=== PATIENT | male | born 1935 | race American Indian/Alaskan Native ===

== ENCOUNTER 2016-09-06 10:37 | Emergency (ER) | payer MEDICARE ==
[2016-09-06 10:38] VITALS: BMI 30.7
[2016-09-06] MEDS ORDERED: Sodium Chloride 0.9% 1,000 ML IV ONE (11:13)
[2016-09-06] MEDS ORDERED: Sodium Chloride 0.9% 1,000 ML ONE (11:43)
[2016-09-06 11:51] LABS: BASO % 0.8 % (0.0-2.0); EOS # 0.1 K/uL (0.0-0.7); EOS % 3.8 % (0.0-4.0); HEMATOCRIT 34.9 % (35.0-51.0); LYMPH # 0.7 K/uL (1.0-4.3); LYMPH % 18.2 % (20.0-40.0); MEAN CELL VOLUME 88.8 fL (80.0-94.0); MEAN CORPUSCULAR HEMOGLOBIN 28.8 pg (27.0-31.0); MEAN CORPUSCULAR HGB CONC 32.4 g/dL (33.0-37.0); MEAN PLATELET VOLUME 8.4 fL (7.2-11.7); MONO # 0.3 K/uL (0.0-0.8); MONO % 8.8 % (0.0-10.0); RED CELL DISTRIBUTION WIDTH 15.3 % (11.5-14.5); WHITE BLOOD COUNT 3.8 K/uL (4.8-10.8)
[2016-09-06 11:57] LABS: CHLORIDE 101 mmol/L (98-107); POTASSIUM 4.5 mmol/L (3.6-5.2); SODIUM 140 mmol/L (132-148)
[2016-09-06 11:59] LABS: AST/SGOT 17 U/L (17-59); BILIRUBIN,TOTAL 0.3 mg/dL (0.2-1.3); CARBON DIOXIDE 29 mmol/L (22-30); GFR AFRICAN-AMERICAN > 60
[2016-09-06 12:00] LABS: ALB/GLOB RATIO 1.4 (1.0-2.1); ALKALINE PHOSPHATASE 46 U/L (38-126); ALT/SGPT 22 U/L (21-72); BLOOD UREA NITROGEN 16 mg/dL (9-20); CALCIUM 8.6 mg/dl (8.6-10.4); GLUCOSE,RANDOM 89 mg/dL (75-110); TOTAL PROTEIN 6.7 g/dL (6.3-8.3)
[2016-09-06 12:13] LABS: URINE BACTERIA RARE (<OCC); URINE BILIRUBIN NEGATIVE (NEGATIVE); URINE BLOOD NEGATIVE (NEGATIVE); URINE COLOR Straw (YELLOW); URINE GLUCOSE (UA) NORMAL (Normal); URINE KETONE NEGATIVE (NEGATIVE); URINE LEUKOCYTE ESTERASE NEG Leu/uL (Negative); URINE PROTEIN NEGATIVE (NEGATIVE); URINE UROBILINOGEN NORMAL mg/dL (0.2-1.0); WBC URINE < 1 /hpf (0-5)
--- NOTE | 2016-09-06 13:07 | C.PDOC ---
History Of Present Illness 81 y/o male presents to the ED with complains of right sided rib pain radiating to back for the past couple weeks. Pain is sharp and increases with movement. Pt is taking pain medications with some relief. Pt denies nausea, vomiting, chest pain or any other complaints. Pt saw PMD for same who ordered XRs which were completed and were negative for any pathology. Pt has not followed up with PMD since. Chief Complaint (Nursing): Abdominal Pain History Per: Patient History/Exam Limitations: no limitations Onset/Duration Of Symptoms: Days Current Symptoms Are (Timing): Still Present Severity: Moderate Location Of Pain/Discomfort: Other (right rib pain) Radiation Of Pain To:: Back Associated Symptoms: denies: Fever, Chills, Nausea, Vomiting, Chest Pain Exacerbating Factors: Movement Recent travel outside of the [place]: No Past Medical History Reviewed: Historical Data, Nursing Documentation, Vital Signs Vital Signs: Last Vital Signs Temp 97.4 F L 09/06/16 13:58 Pulse 54 L 09/06/16 13:58 Resp 16 09/06/16 13:58 BP 132/69 09/06/16 13:58 Pulse Ox 97 09/06/16 13:58 - Medical History PMH: Anemia, Arthritis, Asthma, Atrial Fibrillation, Cardia Arrhythmia (04-23-16 ), CHF, Colonic Polyps, COPD, Depression, Diabetes, Diverticulitis, Fractures ( LEFT UPPER ARM), HTN, Hypercholesterolemia, Kidney Stones, Osteoporosis, Peripheral Edema, Pneumonia, Sleep Apnea Surgical History: Endoscopy, Pacemaker - [facility] Procedures DPT ADMINISTRATION (02/10/15) ENDOSC POLYPECTOMY OF LG INTEST (08/16/14) ESOPHAGOGASTRODUODENOSCOPY [EGD] W/CLOSED BIOPSY (08/16/14) MEASURE OF CARDIAC SAMPL & PRESSURE, L HEART, PERC APPROACH (04/23/16) PACKED CELL TRANSFUSION (02/17/15) PLAIN RADIOGRAPHY OF LEFT HEART USING LOW OSMOLAR CONTRAST (04/23/16) PLAIN RADIOGRAPHY OF MULT COR ART USING L OSM CONTRAST (04/23/16) PLAIN RADIOGRAPHY OF THORACIC AORTA USING L OSM CONTRAST (04/23/16) Family History: States: Unknown Family Hx - Social History Hx Alcohol Use: No Hx Substance Use: No Review Of Systems Except As Marked, All Systems Reviewed And Found Negative. Constitutional: Negative for: Fever, Chills Cardiovascular: Negative for: Chest Pain Respiratory: Negative for: Shortness of Breath Gastrointestinal: Negative for: Nausea, Vomiting Musculoskeletal: Positive for: Other (right sided rib pain radiating to back) Physical Exam - Physical Exam Appears: Non-toxic, No Acute Distress Skin: Warm, Dry, No Rash Head: Atraumatic, Normacephalic Neck: Normal ROM, Supple Chest: Symmetrical, Tenderness (point tenderness right lower rib cage) Cardiovascular: Rhythm Regular, Murmur (systolic) Respiratory: Normal Breath Sounds, No Rales, No Rhonchi, No Wheezing Gastrointestinal/Abdominal: Soft, No Tenderness Extremity: No Pedal Edema Extremity: Bilateral: Atraumatic Neurological/Psych: Oriented x3 ED Course And Treatment - Laboratory Results Result Diagrams: 09/06/16 11:43 09/06/16 11:43 O2 Sat by Pulse Oximetry: 96 (on room air) Pulse Ox Interpretation: Normal Progress Note: Plan: US abd, zofran, pepcid, toradol, IV fluids Disposition - [facility] - Disposition: HOME/ ROUTINE Disposition Time: 15:30 Condition: GOOD Additional Instructions: Thank you for letting us take care of you today. Your provider was Dr. Bryant. You were treated for musculoskeletal pain. The emergency medical care you received today was directed at your acute symptoms. If you were prescribed any medication, please fill it and take as directed. It may take several days for your symptoms to resolve. Return to the Emergency Department if your symptoms worsen, do not improve, or if you have any other problems. Please contact your doctor or call one of the physicians/clinics you have been referred to that are listed on the Patient Visit Information form that is included in your discharge packet. Bring any paperwork you were given at discharge with you along with any medications you are taking to your follow up visit. Our treatment cannot replace ongoing medical care by a primary care provider (PCP) outside of the emergency department. Thank you for allowing the [facility] team to be part of your care today. Follow up with your doctor in 2-3 days to be re-evaluated. Prescriptions: Cyclobenzaprine [Cyclobenzaprine HCl] 10 mg PO Q8 PRN #20 tab PRN Reason: Muscle Spasm Ibuprofen [Motrin] 600 mg PO Q6 PRN #20 tab PRN Reason: Pain, Moderate (4-7) Instructions: Musculoskeletal Pain (ED) - Clinical Impression Clinical Impression: Costochondritis - Scribe Statement The provider has reviewed the documentation as recorded by the Raul Gerber Provider Attestation: All medical record entries made by the Raul were at my direction and personally dictated by me. I have reviewed the chart and agree that the record accurately reflects my personal performance of the history, physical exam, medical decision making, and the department course for this patient. I have also personally directed, reviewed, and agree with the discharge instructions and disposition.
--- NOTE | 2016-09-06 15:41 | US ---
HISTORY: epigastric and RUQ tenderness COMPARISON: Abdominal ultrasound performed 03/30/16 TECHNIQUE: Sonographic evaluation of the abdomen. FINDINGS: LIVER: Measures 19.5 cm in sagittal dimension. At least 2 probable hepatic cysts identified measuring approximately 1.2 x 0.7 x 1.0 cm containing a septation and 1.0 x 0.8 x 1 cm. The main portal vein appears patent with normal directional flow. No intrahepatic bile duct dilatation. GALLBLADDER: No gallstones. No gallbladder wall thickening. Negative sonographic Rodarte's sign as assessed by the tool room gear machine operator. COMMON BILE DUCT: Measures 6 mm. PANCREAS: Not well visualized. RIGHT KIDNEY: Measures 11.9 x 4.8 x 4.7cm. No obstructing calculus or hydronephrosis identified. Right midpole renal probable cysts measure approximately 4.1 x 3.8 x 4.1 cm and 2.0 x 2.2 x 1.8 cm. LEFT KIDNEY: Measures 11.4 x 4.7 x 5.4cm. No obstructing calculus or hydronephrosis identified. Left upper pole renal probable cysts measure approximately 1.6 x 1.5 x 1.8 cm and 1.7 x 1.8 x 1.6 cm. Left lower pole renal probable cyst measures approximately 1.5 x 1.8 x 1.6 cm. SPLEEN: Measures approximately 8.9 cm. AORTA: Limited views appear unremarkable. IVC: Limited views appear unremarkable. OTHER FINDINGS: None. IMPRESSION: Probable renal and hepatic cysts as above.
[2016-09-06 16:00] VITALS: BP 135/75; PULSE 57; RESP 18; TEMP 98.1
[2016-09-06 16:02] VITALS: O2SAT 96
== END 2016-09-06 16:45 | disposition home or self-care (01) ==
LOC: C.ER 10:37
DX: M94.0 Chondrocostal junction syndrome [Tietze] (principal)
CPT/HCPCS: 76700; 80053; 81001; 83690; 85025; 87086; 96374; 96375; 99284; J1885; J2405; J7040